=== PATIENT | male | born 1955 | race Caucasian/White ===

== ENCOUNTER 2024-05-06 16:22 | Emergency (ER) | payer MEDICARE, OTHER ==
[~2024-05-06] VITALS: Ht 188 cm; Wt 90.9 kg
[2024-05-06 16:27] VITALS: PULSE 105; RESP 18; TEMP 98.6
[2024-05-06] MEDS: ALBUTEROL/IPRATROPIUM 3 ML NEB NEB ONE (17:32)
[2024-05-06] MEDS ORDERED: VENTOLIN HFA18 GM INH (17:59)
[2024-05-06] MEDS ORDERED: AMOX TR-K CLV1 EAC2 PO (18:00)
[2024-05-06] MEDS ORDERED: MEDROL4 M2 PO (18:02)
[2024-05-06 18:19] VITALS: BP 127/97; PULSE 99; RESP 16; TEMP 98.4; O2SAT 97
== END 2024-05-06 18:20 | disposition home or self-care (01) ==
LOC: FSED 16:25
DX: R05.9 Cough, unspecified (principal); J20.9 Acute bronchitis, unspecified; R09.82 Postnasal drip; F41.9 Anxiety disorder, unspecified; Z85.51 Personal history of malignant neoplasm of bladder
CPT/HCPCS: 99284